=== PATIENT | male | born 1950 | race American Indian/Alaskan Native ===

== ENCOUNTER 2018-02-06 13:31 | Outpatient (CLI) | payer MEDICARE ==
--- NOTE | 2018-02-06 16:03 | XRay Report ---
XRAY RIGHT HIP TWO VIEWS: 02/06/18 13:31:00 CLINICAL: Right hip pain. FINDINGS: No fracture or dislocation.Moderate osteoarthritis of the right hip with superolateral joint space narrowing and a small superolateral osteophyte. Normal femoral head contour and density. Slightly less osteoarthritis of the left hip. Normal soft tissues. IMPRESSION: Osteoarthritis
--- NOTE | 2018-02-06 16:06 | XRay Report ---
XRAY LUMBAR SPINE THREE VIEWS: 02/06/18 13:31:00 CLINICAL: Right sided low back pain and right sciatica. FINDINGS: Normal vertebral body height, alignment and disk spaces. No fracture. Large anterior osteophytes from L1-2 through L4-5. The pedicles are intact. Facet joint disease at L3-4, L4-5 and L5-S1. Calcification of the abdominal aorta. IMPRESSION: Anterior spondylosis and moderate multilevel lower lumbar facet joint disease.
== END 2018-02-06 13:32 | disposition home or self-care (01) ==
LOC: SPVIMAG 13:31
PROVIDERS: ATTEND Nurse Practitioner
DX: M47.896 Other spondylosis, lumbar region (principal); M16.11 Unilateral primary osteoarthritis, right hip; M25.78 Osteophyte, vertebrae
CPT/HCPCS: 72100